=== PATIENT | male | born 1960 | race Caucasian/White ===

== ENCOUNTER 2019-08-09 18:57 | Emergency (ER) | payer OTHER ==
[~2019-08-09] VITALS: Ht 177.8 cm; Wt 97.5 kg
[2019-08-09 19:47] LABS: BASO # 0.1 10*3/uL (0.0-0.1); BASO % 0.8 % (0.0-1.0); EOS # 0.1 10*3/uL (0.0-0.4); EOS % 1.4 % (1.0-4.0); HEMATOCRIT 42.3 % (42.0-52.0); LYMPH # 2.8 10*3/uL (1.3-4.4); LYMPH % 30.5 % (27.0-41.0); MEAN CELL VOLUME 88.3 fl (80.0-94.0); MEAN CORPUSCULAR HGB 29.9 pg (27.0-31.0); MEAN CORPUSCULAR HGB CONC 33.8 g/dl (33.0-37.0); MONO # 0.8 10*3/uL (0.1-1.0); MONO % 8.9 % (3.0-9.0); NEUT # 5.4 10*3/uL (2.3-7.9); PLATELET COUNT AUTOMATED 267 10*3/uL (130-400); RED BLOOD COUNT 4.79 10*6/uL (4.50-5.90); RED CELL DISTRI WIDTH 12.1 % (0-14.5); WHITE BLOOD COUNT 9.3 10*3/uL (4.8-10.8)
[2019-08-09 19:57] LABS: ACT PARTIAL THROMBO TIME 26.7 SECONDS (20.0-32.1)
[2019-08-09 20:03] LABS: ALBUMIN 3.8 gm/dl (3.1-4.5); ALKALINE PHOSPHATASE 53 U/L (45-117); BUN 21 mg/dl (7-24); CHLORIDE 105 mmol/L (98-107); CREATININE 1.12 mg/dL (0.70-1.30); LIPASE 114 U/L (73-393); POTASSIUM 3.7 mmol/L (3.5-5.1); SGOT/AST 23 IU/L (3-35); SGPT/ALT 40 U/L (12-78); SODIUM 141 mmol/L (136-145); TOTAL PROTEIN 7.7 gm/dL (6.4-8.2); TROPONIN I 0.017 ng/ml (<0.045)
== END 2019-08-09 20:27 | disposition short-term general hospital (02) ==
LOC: ED 18:57
PROVIDERS: Nurse Practitioner Family
DX: I21.19 ST elevation (STEMI) myocardial infarction involving other coronary artery of inferior wall (principal); I10 Essential (primary) hypertension

== ENCOUNTER 2019-10-26 22:44 | Emergency (ER) | payer OTHER ==
[~2019-10-26] VITALS: Ht 177.8 cm; Wt 86.2 kg
[2019-10-26] MEDS ORDERED: CARVEDILOL12.5 MG PO (22:57)
[2019-10-26] MEDS ORDERED: LOSARTAN POTASS25 M1 PO (22:57)
[2019-10-26] MEDS ORDERED: BRILINTA90 M1 PO (22:57)
[2019-10-26] MEDS ORDERED: METFORMIN HYDR500 MG PO (22:59)
[2019-10-26] MEDS ORDERED: ROSUVASTATIN CA40 MG PO (22:59)
== END 2019-10-27 01:06 | disposition home or self-care (01) ==
LOC: ED 22:44
DX: R04.0 Epistaxis (principal); I10 Essential (primary) hypertension; I25.2 Old myocardial infarction; Z79.899 Other long term (current) drug therapy

== ENCOUNTER → 2024-03-06 | Outpatient (CLI) | payer OTHER ==
[~2024-03-06] MED LIST: BRILINTA90 M1 PO; CARVEDILOL12.5 MG PO; LOSARTAN POTASS25 M1 PO; METFORMIN HYDR500 MG PO; ROSUVASTATIN CA40 MG PO
[2024-03-06 12:45] LABS: BASO # 0.1 10*3/uL (0.0-0.1); EOS # 0.2 10*3/uL (0.0-0.4); EOS % 3.1 % (1.0-4.0); HEMATOCRIT 40.9 % (42.0-52.0); MEAN CELL VOLUME 90.9 fl (80.0-94.0); MEAN PLATELET VOLUME 9.9 fl (9.6-12.3); MONO # 0.8 10*3/uL (0.1-1.0); MONO % 12.3 % (3.0-9.0); NEUT # 3.6 10*3/uL (2.3-7.9); NEUT % 57.8 % (47.0-73.0); PLATELET COUNT AUTOMATED 219 10*3/uL (130-400); RED CELL DISTRI WIDTH 12.6 % (0-14.5); WHITE BLOOD COUNT 6.2 10*3/uL (4.8-10.8)
[2024-03-06 13:09] LABS: ALKALINE PHOSPHATASE 51 U/L (46-116); BUN 19 mg/dl (9-23); CHLORIDE 104 mmol/L (98-107); POTASSIUM 3.9 mmol/L (3.4-5.1); SGPT/ALT 24 U/L (5-49); TOTAL PROTEIN 7.6 gm/dL (6.0-8.0); URIC ACID 7.6 mg/dL (3.7-9.2)
[2024-03-07 05:07] LABS: HEP B SURFACE Ab, Qual Non Reactive (.); IMMUNOGLOBULIN G, Qn 1609 mg/dL (603-1613); IMMUNOGLOBULIN M, Qn 44 mg/dL (20-172)
[2024-03-09 14:07] LABS: FREE KAPPA LIGHT CHAINS 13.8 mg/L (3.3-19.4); FREE LAMBDA LIGHT CHAINS 7.7 mg/L (5.7-26.3); K/L RATIO 1.79 (0.26-1.65)
[2024-03-09 15:07] LABS: A/G RATIO 1.3 (0.7-1.7); ALPHA-1-GLOBULIN 0.2 g/dL (0.0-0.4); ALPHA-2-GLOBULIN 0.7 g/dL (0.4-1.0); BETA GLOBULIN 0.8 g/dL (0.7-1.3); GAMMA GLOBULIN 1.5 g/dL (0.4-1.8); GLOBULIN, TOTAL 3.2 g/dL (2.2-3.9)
[2024-03-10 16:08] LABS: BETA-2 MICROGLOBULIN 1.6 mg/L (0.6-2.4)
== END | disposition home or self-care (01) ==
LOC: LAB 12:09
PROVIDERS: ATTEND Internal Medicine Hematology & Oncology
DX: D64.9 Anemia, unspecified (principal); C90.00 Multiple myeloma not having achieved remission